=== PATIENT | female | born 1955 ===

== ENCOUNTER → 2021-08-01 | Outpatient (CLI) | payer SELFPAY ==
[2021-08-01 18:51] LABS: BASOPHILS ABSOLUTE AUTO 0.06 K/mm3 (0.00-0.23); BASOPHILS PERCENT AUTO 1 % (0-2); EOSINOPHILS ABSOLUTE AUTO 0.22 K/mm3 (0.00-0.68); EOSINOPHILS PERCENT AUTO 2 % (0-6); Hematocrit 46.8 % (33.0-51.0); Hemoglobin 15.6 g/dL (11.5-16.0); IMMATURE GRAN ABSOLUTE AUTO 0.03 K/mm3 (0.00-0.10); IMMATURE GRAN PERCENT AUTO 0 % (0-1); LYMPHOCYTES ABSOLUTE AUTO 3.62 K/mm3 (0.84-5.20); LYMPHOCYTES PERCENT AUTO 36 % (21-46); MONOCYTES ABSOLUTE AUTO 0.62 K/mm3 (0.16-1.47); MONOCYTES PERCENT AUTO 6 % (4-13); Mean Corpuscular HGB 31.7 pg (26.0-34.0); Mean Corpuscular HGB Conc 33.3 g/dL (31.5-36.5); Mean Corpuscular Volume 95 fL (80-100); Mean Platelet Volume 12.2 fL (9.1-12.4); NEUTROPHILS ABSOLUTE AUTO 5.46 K/mm3 (1.96-9.15); NEUTROPHILS PERCENT AUTO 55 % (41-73); Platelet Count 209 K/mm3 (150-400); RDW Coefficient Variation 12.8 % (11.7-14.2); RDW Standard Deviation 44.9 fL (35.1-46.3); Red Blood Cell Count 4.92 M/mm3 (3.80-5.20); White Blood Cell Count 10.01 K/mm3 (4.00-11.30)
[2021-08-01 19:19] LABS: Albumin, Blood 4.1 g/dL (3.4-5.0); Albumin/Globulin Ratio 1.3 (0.8-1.8); Bilirubin, Total 0.7 mg/dL (0.1-1.0); Bun/Creatinine Ratio 13.7 (12.0-20.0); Calcium, Blood 9.5 mg/dL (8.5-10.1); Creatinine, Blood 1.02 mg/dL (0.40-1.00); Globulin, Blood 3.1 g/dL (2.2-4.0); Potassium, Blood 4.2 mmol/L (3.5-5.5); Total Protein, Blood 7.2 g/dL (6.4-8.2)
[2021-08-01 19:25] LABS: CHOL/HDL RATIO 3.8; Cholesterol 163 mg/dL (50-200); Ferritin, Serum 368 ng/mL (8-252); HDL Cholesterol 43 mg/dL (>39); Iron Serum 124 ug/dL (50-170); LDL/HDL RATIO 1.6; Low Density Lipoprotein Chol 69 mg/dL (0-110); Percent Saturation 41.9 % (15.0-50.0); Total Iron Binding Capacity 296 ug/dL (250-450); Triglycerides 253 mg/dL (30-160); Very Low Density Lipoprot Chol 50 mg/dL (6-32)
== END | disposition home or self-care (01) ==
LOC: LAB SHORT 10:17 → LAB 10:17
PROVIDERS: Nurse Practitioner Family
DX: E78.5 Hyperlipidemia, unspecified (principal); E03.9 Hypothyroidism, unspecified; I10 Essential (primary) hypertension; R53.83 Other fatigue
CPT/HCPCS: 80053; 80061; 82728; 83036; 83540; 83550; 84443; 85025

== ENCOUNTER → 2021-11-21 | Outpatient (CLI) | payer SELFPAY ==
[2021-11-21 18:10] LABS: Free Thyroxine 1.01 ng/dL (0.70-1.60)
[2021-11-21 18:14] LABS: Thyroid Stimulating Hormone 4.07 uIU/mL (0.360-4.800)
== END | disposition home or self-care (01) ==
LOC: LAB SHORT 12:00
PROVIDERS: Internal Medicine Endocrinology, Diabetes & Metabolism
DX: E89.0 Postprocedural hypothyroidism (principal)
CPT/HCPCS: 84439; 84443

== ENCOUNTER → 2022-10-26 | Outpatient (CLI) | payer MEDICARE, OTHER ==
[2022-10-26 18:48] LABS: Thyroid Stimulating Hormone 2.33 uIU/mL (0.360-4.800)
== END | disposition home or self-care (01) ==
LOC: LAB 09:30 → LAB SHORT 09:30
PROVIDERS: Nurse Practitioner Family
DX: R53.83 Other fatigue (principal)
CPT/HCPCS: 82607; 82746; 84443

== ENCOUNTER → 2022-11-22 | Outpatient (CLI) | payer MEDICARE, OTHER ==
[2022-11-22 17:51] LABS: BASOPHILS ABSOLUTE AUTO 0.07 K/mm3 (0.00-0.23); BASOPHILS PERCENT AUTO 1 % (0-2); EOSINOPHILS ABSOLUTE AUTO 0.27 K/mm3 (0.00-0.68); EOSINOPHILS PERCENT AUTO 3 % (0-6); Hematocrit 45.6 % (33.0-51.0); Hemoglobin 15.8 g/dL (11.5-16.0); IMMATURE GRAN ABSOLUTE AUTO 0.03 K/mm3 (0.00-0.10); IMMATURE GRAN PERCENT AUTO 0 % (0-1); LYMPHOCYTES PERCENT AUTO 32 % (21-46); MONOCYTES ABSOLUTE AUTO 0.76 K/mm3 (0.16-1.47); MONOCYTES PERCENT AUTO 7 % (4-13); Mean Corpuscular HGB 32.6 pg (26.0-34.0); Mean Corpuscular HGB Conc 34.6 g/dL (31.5-36.5); Mean Corpuscular Volume 94 fL (80-100); NEUTROPHILS ABSOLUTE AUTO 5.97 K/mm3 (1.96-9.15); NEUTROPHILS PERCENT AUTO 57 % (41-73); Platelet Count 221 K/mm3 (150-400); RDW Coefficient Variation 12.8 % (11.7-14.2); RDW Standard Deviation 44.2 fL (35.1-46.3); Red Blood Cell Count 4.85 M/mm3 (3.80-5.20)
[2022-11-22 20:43] LABS: LDL/HDL RATIO 1.9; Very Low Density Lipoprot Chol 37 mg/dL (6-32)
[2022-11-22 20:44] LABS: Alanine Aminotransfer (ALT/SGP 39 U/L (12-78); Albumin, Blood 3.8 g/dL (3.4-5.0); Albumin/Globulin Ratio 1.1 (0.8-1.8); Alk Phos 84 U/L (50-136); Anion Gap 10 mmol/L (6-16); Aspartate Aminotrans (AST/SGOT 27 U/L (12-37); Bilirubin, Total 0.6 mg/dL (0.1-1.0); Blood Urea Nitrogen 18 mg/dL (8-24); Bun/Creatinine Ratio 19.7 (12.0-20.0); CHOL/HDL RATIO 3.8; CO2, Blood 20 mmol/L (21-32); Chloride, Blood 109 mmol/L (98-108); Cholesterol 149 mg/dL (50-200); Creatinine, Blood 0.92 mg/dL (0.40-1.00); Globulin, Blood 3.4 g/dL (2.2-4.0); Glomerular Filtration Rate 68 (60-); Glucose, Blood 149 mg/dL (70-99); HDL Cholesterol 39 mg/dL (>39); Low Density Lipoprotein Chol 73 mg/dL (0-110); Potassium, Blood 4.2 mmol/L (3.5-5.5); Sodium, Blood 139 mmol/L (136-145); Total Protein, Blood 7.2 g/dL (6.4-8.2); Triglycerides 185 mg/dL (30-160)
== END | disposition home or self-care (01) ==
LOC: LAB SHORT 08:45
PROVIDERS: Nurse Practitioner Family
DX: E78.5 Hyperlipidemia, unspecified (principal); E55.9 Vitamin D deficiency, unspecified; I10 Essential (primary) hypertension
CPT/HCPCS: 80053; 80061; 84443; 85025

== ENCOUNTER 2022-11-30 10:23 | Emergency (ER) | payer OTHER, MEDICARE ==
[~2022-11-30] VITALS: Ht 162.6 cm; Wt 90.7 kg
[2022-11-30] MEDS ORDERED: OXYC5 PO (13:41)
[2022-11-30] MEDS ORDERED: ONDA4ODT MM (13:53)
[2022-12-01] MEDS ORDERED: LOSA25 PO (07:12)
[2022-12-01] MEDS ORDERED: LEVSOD25 PO (07:13)
[2022-12-01] MEDS ORDERED: EUTHYROX88 MCG PO (07:16)
[2022-12-01] MEDS ORDERED: Fenofibrate134 MG PO (07:16)
[2022-12-01] MEDS ORDERED: ASPIR 8181 M1 PO (07:39)
[2022-12-01] MEDS ORDERED: ERGO400 PO (07:41)
== END 2022-11-30 14:44 | disposition home or self-care (01) ==
LOC: ER 10:23
DX: S82.842A Displaced bimalleolar fracture of left lower leg, initial encounter for closed fracture (principal); W01.0XXA Fall on same level from slipping, tripping and stumbling without subsequent striking against object, initial encounter; E11.9 Type 2 diabetes mellitus without complications; I10 Essential (primary) hypertension; Z88.8 Allergy status to other drugs, medicaments and biological substances; Z88.5 Allergy status to narcotic agent
CPT/HCPCS: 73600; 73610; A9270; J1170; J1885; J2405; J2765

== ENCOUNTER 2022-12-01 06:14 | Day surgery (SDC) | payer MEDICARE, OTHER ==
[~2022-12-01] VITALS: Ht 162.6 cm; Wt 90.9 kg
[~2022-12-01 06:14] MED LIST: ONDA4ODT MM; OXYC5 PO
[2022-12-01] MEDS ORDERED: LOSA25 PO (07:12)
[2022-12-01] MEDS ORDERED: LEVSOD25 PO (07:13)
[2022-12-01] MEDS ORDERED: EUTHYROX88 MCG PO (07:16)
[2022-12-01] MEDS ORDERED: Fenofibrate134 MG PO (07:16)
[2022-12-01] MEDS ORDERED: ASPIR 8181 M1 PO (07:39)
[2022-12-01] MEDS ORDERED: ERGO400 PO (07:41)
--- NOTE | 2022-12-01 08:15 | NUR ---
12/01/22 0815 Gutierrez Clay ROPIVACAINE 0.5% 30 MLS MIXED W/ EPI 0.15 ML (1MG/ML) PER ORDER TO MAKE ROPIVACAINE 0.5% 1:200,000 FOR INJECTION AT OPSITE BY DR KAY. 30 MLS INJECTED.
--- NOTE | 2022-12-01 10:42 | NUR ---
12/01/22 1042 MILTON JACOBO PT USING INCENTIVE SPIROMOMETER. 02 AT 95% ON RA. AT BEDSIDE. PT EATING AND DRINKING W/O DIFFICULTY.
== END 2022-12-01 12:15 | disposition home or self-care (01) ==
LOC: ORSCSDS 06:14
PROVIDERS: Podiatrist Foot & Ankle Surgery
PROC: 0QSH04Z Reposition Left Tibia with Internal Fixation Device, Open Approach (ICD-10-PCS; principal; 2022-12-01 08:00)
PROC: 0QSK04Z Reposition Left Fibula with Internal Fixation Device, Open Approach (ICD-10-PCS; principal; 2022-12-01 08:00)
DX: S82.852A Displaced trimalleolar fracture of left lower leg, initial encounter for closed fracture (principal); S93.492A Sprain of other ligament of left ankle, initial encounter; W18.30XA Fall on same level, unspecified, initial encounter; E11.9 Type 2 diabetes mellitus without complications; E78.5 Hyperlipidemia, unspecified; Z87.891 Personal history of nicotine dependence; Z79.899 Other long term (current) drug therapy; E05.00 Thyrotoxicosis with diffuse goiter without thyrotoxic crisis or storm; I10 Essential (primary) hypertension
CPT/HCPCS: 82947; 93005; 93010; A9270; C1713; C1769; C1776; J0171; J0690; J1100; J2250; J2405; J2704; J2795; J3010; J7120

== ENCOUNTER → 2023-12-20 | Outpatient (CLI) | payer MEDICARE, OTHER ==
[~2023-12-20] MED LIST changes: +ASPIR 8181 M1 PO; +ERGO400 PO; +EUTHYROX88 MCG PO; +Fenofibrate134 MG PO; +LEVSOD25 PO; +LOSA25 PO
[2023-12-20 20:28] LABS: Cholesterol 234 mg/dL (50-200); Free Thyroxine 1.11 ng/dL (0.70-1.60); HDL Cholesterol 39 mg/dL (>39); LDL/HDL RATIO 3.5; Low Density Lipoprotein Chol 135 mg/dL (0-110); Triglycerides 299 mg/dL (30-160); Very Low Density Lipoprot Chol 59 mg/dL (6-32)
[2023-12-22 08:15] LABS: A/G RATIO 1.8 (1.2-2.2); BILIRUBIN, TOTAL 0.3 mg/dL (0.0-1.2); CALCIUM, SERUM 9.4 mg/dL (8.7-10.3); CREATININE, SERUM 0.97 mg/dL (0.57-1.00); GLOBULIN, TOTAL 2.5 g/dL (1.5-4.5); POTASSIUM, SERUM 4.7 mmol/L (3.5-5.2); PROTEIN, TOTAL, SERUM 6.9 g/dL (6.0-8.5)
== END | disposition home or self-care (01) ==
LOC: LAB 16:52 → LAB SHORT 16:52
PROVIDERS: Family Medicine
DX: E11.9 Type 2 diabetes mellitus without complications (principal); I10 Essential (primary) hypertension; E03.9 Hypothyroidism, unspecified
CPT/HCPCS: 80053; 80061; 83036; 84439; 84443

== ENCOUNTER → 2024-06-09 | Outpatient (CLI) | payer MEDICARE, OTHER | LOC: LAB 07:31 → LAB SHORT 07:31 | DX: L72.8 Other follicular cysts of the skin and subcutaneous tissue (principal) | CPT/HCPCS: 88304 ==

== ENCOUNTER → 2024-09-15 | Outpatient (CLI) | payer MEDICARE, OTHER ==
[2024-09-15 18:59] LABS: BASOPHILS ABSOLUTE AUTO 0.07 K/mm3 (0.00-0.23); BASOPHILS PERCENT AUTO 1 % (0-2); EOSINOPHILS ABSOLUTE AUTO 0.29 K/mm3 (0.00-0.68); EOSINOPHILS PERCENT AUTO 3 % (0-6); Hematocrit 46.3 % (33.0-51.0); Hemoglobin 15.7 g/dL (11.5-16.0); IMMATURE GRAN ABSOLUTE AUTO 0.04 K/mm3 (0.00-0.10); IMMATURE GRAN PERCENT AUTO 0 % (0-1); LYMPHOCYTES ABSOLUTE AUTO 3.87 K/mm3 (0.84-5.20); LYMPHOCYTES PERCENT AUTO 34 % (21-46); MONOCYTES ABSOLUTE AUTO 0.75 K/mm3 (0.16-1.47); MONOCYTES PERCENT AUTO 7 % (4-13); Mean Corpuscular HGB 32.2 pg (26.0-34.0); Mean Corpuscular HGB Conc 33.9 g/dL (31.5-36.5); Mean Corpuscular Volume 95 fL (80-100); Mean Platelet Volume 12.1 fL (9.1-12.4); NEUTROPHILS ABSOLUTE AUTO 6.24 K/mm3 (1.96-9.15); NEUTROPHILS PERCENT AUTO 55 % (41-73); Platelet Count 250 K/mm3 (150-400); RDW Coefficient Variation 12.9 % (11.7-14.2); RDW Standard Deviation 44.9 fL (35.1-46.3); Red Blood Cell Count 4.87 M/mm3 (3.80-5.20); White Blood Cell Count 11.26 K/mm3 (4.00-11.30)
[2024-09-15 21:16] LABS: Albumin/Globulin Ratio 1.2 (0.8-1.8); Bilirubin, Total 0.7 mg/dL (0.1-1.0); Bun/Creatinine Ratio 15.2 (12.0-20.0); Calcium, Blood 9.9 mg/dL (8.5-10.1); Creatinine, Blood 1.05 mg/dL (0.40-1.00); Free Thyroxine 1.37 ng/dL (0.70-1.60); Globulin, Blood 3.4 g/dL (2.2-4.0); Potassium, Blood 4.2 mmol/L (3.5-5.5); Thyroid Stimulating Hormone 0.892 uIU/mL (0.360-4.800); Total Protein, Blood 7.4 g/dL (6.4-8.2)
== END ==
LOC: LAB 17:08 → LAB SHORT 17:08
PROVIDERS: Nurse Practitioner Family
DX: I10 Essential (primary) hypertension (principal); E03.9 Hypothyroidism, unspecified; E11.9 Type 2 diabetes mellitus without complications
CPT/HCPCS: 80053; 83036; 84439; 84443; 85025

== ENCOUNTER → 2025-05-25 | Outpatient (CLI) | payer MEDICARE, OTHER ==
[2025-05-25 19:34] LABS: CHOL/HDL RATIO 5.0; Cholesterol 218 mg/dL (50-200); HDL Cholesterol 44 mg/dL (>39); LDL/HDL RATIO 3.2; Low Density Lipoprotein Chol 140 mg/dL (0-110); Triglycerides 169 mg/dL (30-160); Very Low Density Lipoprot Chol 34 mg/dL (6-32)
== END ==
LOC: LAB SHORT 16:21 → LAB 16:21
PROVIDERS: Registered Nurse Emergency
DX: E78.5 Hyperlipidemia, unspecified (principal)
CPT/HCPCS: 80061

== ENCOUNTER → 2025-08-04 | Outpatient (CLI) | payer MEDICARE, OTHER ==
[2025-08-05 10:30] LABS: Anion Gap 12 mmol/L (3-11); Blood Urea Nitrogen 16 mg/dL (8-24); CHOL/HDL RATIO 5.3; CO2, Blood 23 mmol/L (21-32); Calcium, Blood 9.1 mg/dL (8.5-10.1); Chloride, Blood 106 mmol/L (98-108); Cholesterol 229 mg/dL (50-200); Creatinine, Blood 0.92 mg/dL (0.40-1.00); Glucose, Blood 120 mg/dL (70-99); HDL Cholesterol 43 mg/dL (>39); LDL/HDL RATIO 3.2; Low Density Lipoprotein Chol 137 mg/dL (0-110); Potassium, Blood 4.1 mmol/L (3.5-5.5); Sodium, Blood 137 mmol/L (136-145); Thyroid Stimulating Hormone 0.535 uIU/mL (0.360-4.800); Triglycerides 243 mg/dL (30-160); Very Low Density Lipoprot Chol 48 mg/dL (6-32)
== END ==
LOC: LAB SHORT 08:30 → LAB 08:30
PROVIDERS: Family Medicine
DX: E78.2 Mixed hyperlipidemia (principal); I10 Essential (primary) hypertension; E11.9 Type 2 diabetes mellitus without complications; E03.9 Hypothyroidism, unspecified
CPT/HCPCS: 80048; 80061; 83036; 84443